=== PATIENT | female | born 1970 | race Caucasian/White ===

== ENCOUNTER → 2024-05-30 10:14 | Outpatient (REF) | payer OTHER, SELFPAY | LOC: WDC 10:14 | PROVIDERS: FAMILY PHYSICIAN Family Medicine | DX: N63.25 Unspecified lump in the left breast, overlapping quadrants (principal) | CPT/HCPCS: 76642; 77062; 77066 ==

== ENCOUNTER → 2025-05-11 09:34 | Outpatient (REF) | payer OTHER, SELFPAY | LOC: WDC 09:34 | PROVIDERS: FAMILY PHYSICIAN Family Medicine | DX: N64.4 Mastodynia (principal) | CPT/HCPCS: 76642; 77062; 77066 ==